=== PATIENT | male | born 1970 | race Caucasian/White ===

== ENCOUNTER 2016-11-30 10:39 | Emergency (ER) | payer MEDICAID, OTHER ==
--- NOTE | 2016-11-30 11:59 | ED Physician Chart ---
Chief Complaint/HPI - Patient Information Date Seen:: 11/30/16 Time Seen:: 10:42 Chief Complaint:: Feeling depressed for past 3 weeks. History of Present Illness:: Pt came by private auto because of increasing depressed mood for about 3 weeks. Pt has h/o bipolar disorder and has been followed by Dr. Fajardo and was last seen by Dr. Fajardo about 2 weeks ago with his medications adjusted. Pt denies any S.I. or H.I.. Pt denies any visual or auditory hallucination. Pt otherwise feels well without subjective complaint. Allergies:: Allergies Allergy/AdvReac Type Severity Reaction Status Date / Time Penicillins Allergy Verified 11/30/16 11:00 Vitals:: Vital Signs - 8 hr 11/30/16 10:40 Temp 97.0 F RR 97 BP 136/84 O2 Sat % 99 Historian:: Patient Family MD/PCP:: LMP:: N/A Review:: Nurse's Note Reviewed Review of Systems - Review of Systems General/Constitutional: No fever, No chills, No weight loss, No weakness, No diaphoresis, No edema, Loss of appetite Skin: No skin lesions, No rash, No bruising Head: No headache, No light-headedness Eyes: No loss of vision, No pain, No diplopia ENT: No earache, No nasal drainage, No sore throat, No tinnitus Neck: Neck pain Cardio Vascular: No chest pain, No palpitations, No PND, No orthopnea, No edema Pulmonary: No SOB, No cough, No wheezing GI: No nausea, No vomiting, No diarrhea, No pain, No melena, No hematochezia, No constipation, No hematemesis G/U: No dysuria Musculoskeletal: No bone or joint pain, No back pain, No muscle pain Endocrine: No polyuria, No polydipsia Psychiatric: Prior psych history, Depression, No anxiety, No suicidal ideation, No homicidal ideation, No auditory hallucination, No visual hallucination Hematopoietic: No bruising, No lymphadenopathy Allergic/Immuno: No urticaria, No angioedema Neurological: No syncope, No focal symptoms, No weakness, No paresthesia, No headache, No dizziness, No confusion Past Medical History - Past Medical History Past Medical History: No significant medical hx Family History: Diabetes Melitus (mother), Cancer (mother) Social History: Smoker (half pack daily. Pt has been informed about health risks associated with chronic tobacco use and has been advised to quit. Pt has been encouraged to enroll in a smoking cessation program. Pt acknowledges understanding.), Alcohol (rare), No Drug Use, , Employed, Other (lives with his .) Employment:: caregiver. Surgical History: None Psychiatricy History: Bipolar, Other (ADHD) Medication: Reviewed Family Medical History - Family Member Mother History Unknown: Yes Ethnicity: Living Status: Still Living Hx Family Cancer: Yes (bladder) Hx Family Coronary Artery Disease: Yes Hx Family Congestive Heart Failure: No Hx Family Hypertension: Yes Hx Family Stroke: No Hx Family Diabetes: Yes Hx Family Seizures: No Hx Family Dementia: No Hx Family AIDS: No Hx Family HIV: No Hx Family COPD: No Hx Family Hepatitis: No Hx Family Psychiatric Problems: No Hx Family Tuberculosis: No Father History Unknown: Yes Age: 80 Ethnicity: Living Status: Still Living Hx Family Cancer: Yes Hx Family Hypertension: Yes Hx Family Diabetes: Yes Physical Exam - Physical Examination General/Constitutional: Awake, Well-developed, well-nourished, Alert, No distress, GCS 15, Non-toxic appearing, Ambulatory Other Gen/Cons comments:: Breathes comfortably, speaks clearly, interacts normally, and ambulates without difficulty. Pt has normal affect. Head: Atraumatic Eyes: Lids, conjuctiva normal, PERRL, EOMI Skin: Nl inspection, No rash, No skin lesions, No ecchymosis, Well hydrated, No lymphadenopathy ENMT: External ears, nose nl, Nasal exam nl, Lips, teeth, gums nl, Oropharynx nl , Tonsils nl Neck: Nontender, Full ROM w/o pain, No nuchal rigidity, No mass, No stridor Respiratory: Nl effort/Exclusion, Clear to Auscultation, No Wheeze/Rhonchi/Rales Cardio Vascular: RRR, No murmur, gallop, rubs, NL S1 S2 GI: No tenderness/rebounding/guarding, No organomegaly, No hernia, Normal BS's, Nondistended, No mass/bruits Other GI comments:: Abdomen is soft. Extremities: No tenderness or effusion, Full ROM, normal strength in all extremities, No edema, Normal digits & nails Neuro/Psych: Alert/oriented (oriented x 3.), Normal motor strength, Judgement/ insight normal, Mood normal, Normal gait, No focal deficits ED Septic Shock - . Is Septic Shock (SBP<90, OR Lactate>4 mmol\L) present?: No - <6hrs of presentation: Vital Signs: Vital Signs - 8 hr 11/30/16 10:40 Temp 97.0 F RR 97 BP 136/84 O2 Sat % 99 Reassessment (Disposition) - Reassessment Reassessment:: 1210 Pt feels well with normal affect. Pt does not think he is that depressed anymore. Pt denies S.I. or H.I. No hallucination. Pt is A and O x 3. Pt ambulates without assistance without difficulty. Pt wants to leave now and prefers to contact his psychiatrist for further care tomorrow. Pt does not want further observation/management here. Pt has been informed that if he ever feels overwhelmed with depression and has thought to hurt himself or others, or if there is anything we can be help, he is welcomed to return anytime. Pt acknowledges understanding and appreciates our effort in caring for him. Reassessment Condition:: Improved - Diagnosis Diagnosis:: Bipolar disorder, stable. - Aftercare/Follow up Instructions Aftercare/Follow-Up Instructions:: Refer to Discharge Instructions Notes:: Continue present care. F/U with Dr. Fajardo, his psychiatrist, as planned in one day for recheck. Return to ER immediately if condition worsens or if any further questions/problems. Medication Prescribed:: None - Patient Disposition Discharge/Transfer:: Home Time:: 12:15 Condition at Disposition:: Stable, Improved ED Discharge Plan - Patient Disposition Admit/Discharge/Transfer: PT DISCHARGED HOME Condition at Disposition: Improved Instructions: Psychosis, Bipolar Disorder Additional Instructions: TOLERATED.
== END 2016-11-30 12:15 | disposition home or self-care (01) ==
LOC: ER 10:39
DX: F31.9 Bipolar disorder, unspecified (principal); F17.200 Nicotine dependence, unspecified, uncomplicated; Z88.0 Allergy status to penicillin
CPT/HCPCS: Z7502